=== PATIENT | male | born 1975 | race Caucasian/White ===

== ENCOUNTER → 2020-12-03 | Outpatient (CLI) | payer OTHER | END | disposition home or self-care (01) | LOC: STAR 11:27 | PROVIDERS: ATTEND Anesthesiology | DX: Z20.822 Contact with and (suspected) exposure to COVID-19 (principal) | CPT/HCPCS: U0003; U0005 ==

== ENCOUNTER 2020-12-09 05:34 | Observation (INO) | payer OTHER ==
[~2020-12-09] VITALS: Ht 177.8 cm; Wt 89.0 kg
[2020-12-09] MEDS ORDERED: CYCL10TA2 PO (06:06)
[2020-12-09] MEDS ORDERED: SILD50TA PO (06:06)
[2020-12-09 06:22] VITALS: BP 126/76
[2020-12-09] MEDS ORDERED: CHLORHEXIDINE 15 ML UDC PO ONE (06:30)
[2020-12-09] MEDS ORDERED: LACTATED RINGERS 1,000 ML IV SCH (06:30)
[2020-12-09] MEDS ORDERED: NONE PER PT (06:31)
[2020-12-09] MEDS ORDERED: FLUORESCEIN SODIUM 500 MG/5 ML ONE (07:00)
[2020-12-09] MEDS ORDERED: BUPIVACAINE/PF 0.25% ONE (07:00)
[2020-12-09] MEDS ORDERED: METHYLENE BLUE 50 MG/10 ML AMP ONE (07:00)
[2020-12-09] MEDS ORDERED: EPINEPHRINE 1 MG/ML, 1ML ONE (07:01)
[2020-12-09] MEDS ORDERED: MIDAZOLAM 1 MG/ML, 2ML ONE (07:09)
[2020-12-09] MEDS ORDERED: FENTANYL PF 250 MCG/5ML ONE (07:09)
[2020-12-09] MEDS ORDERED: HALOPERIDOL 5 MG/ML IV PRN (07:30)
[2020-12-09] MEDS ORDERED: PROMETHAZINE 25 MG/ML, 1ML IVPush PRN (07:30)
[2020-12-09] MEDS ORDERED: ACETAMINOPHEN 325 MG TABLET PO PRN (07:30)
[2020-12-09] MEDS ORDERED: HYDROmorphone 1 MG/ML, 1ML INJ IVPush PRN (07:30)
[2020-12-09] MEDS ORDERED: hydrALAzine 20 MG/ML, 1ML IV PRN (07:30)
[2020-12-09] MEDS ORDERED: FENTANYL PF 100 MCG/2ML IV PRN (07:30)
[2020-12-09] MEDS ORDERED: OXYcodone 5 MG/5 ML ORAL.SOL UDC PO PRN (07:30)
[2020-12-09] MEDS ORDERED: MEPERIDINE/PF 25MG/0.5ML IVPush PRN (07:30)
[2020-12-09] MEDS ORDERED: LABETALOL 5MG/ML, 20ML IV PRN (07:30)
[2020-12-09] MEDS ORDERED: DIPHENHYDRAMINE 50 MG/ML, 1ML IVPush PRN (07:30)
[2020-12-09] MEDS ORDERED: ONDANSETRON 2MG/ML, 2ML ONE (09:37)
[2020-12-09] MEDS ORDERED: PROPOFOL 10 MG/ML, 20ML ONE (09:37)
[2020-12-09] MEDS ORDERED: GLYCOPYRROLATE 0.2MG/1ML, 5ML ONE (09:37)
[2020-12-09] MEDS ORDERED: SUCCINYLCHOLINE 20 MG/ML, 10ML ONE (09:37)
[2020-12-09] MEDS ORDERED: ROCURONIUM 10MG/ML,5ML ONE (09:37)
[2020-12-09] MEDS ORDERED: CEFAZOLIN 1,000 MG ONE (09:37)
[2020-12-09] MEDS ORDERED: NEOSTIGMINE 1 MG/ML, 10ML ONE (09:37)
[2020-12-09] MEDS ORDERED: DEXAMETHASONE 4 MG/ML, 1ML ONE (09:37)
[2020-12-09] MEDS ORDERED: ACETAMINOPHEN 650 MG/20.3 ML UDC ONE (10:26)
[2020-12-09] MEDS ORDERED: OXYcodone 5 MG/5 ML ORAL.SOL UDC ONE (10:27)
[2020-12-09 11:50] VITALS: BP 122/71
[2020-12-09] MEDS ORDERED: OXYcodone IR 5MG TABLET PO PRN (12:30)
[2020-12-09] MEDS: ACETAMINOPHEN 500 MG TABLET PO SCH ×2 (14:00→16:53)
[2020-12-09 15:45] VITALS: BP 134/71
[2020-12-09] MEDS ORDERED: ONDANSETRON 2MG/ML, 2ML IVPush PRN (17:00)
[2020-12-09] MEDS ORDERED: ONDANSETRON ODT 4 MG PO PRN (17:00)
[2020-12-09] MEDS: D5%-0.45NACL+KCL 20MEQ 1,000 ML IV SCH (18:00)
[2020-12-09 18:52] VITALS: BP 115/68
[2020-12-10 00:27] VITALS: BP 132/74
[2020-12-10] MEDS: D5%-0.45NACL+KCL 20MEQ 1,000 ML IV SCH ×2 (02:49→10:00)
[2020-12-10 03:32] VITALS: BP 110/61
[2020-12-10] MEDS: ACETAMINOPHEN 500 MG TABLET PO SCH (05:07)
[2020-12-10 06:00] LABS: ANION GAP 10 mmol/L (5-15); CALCIUM 8.5 mg/dL (8.5-10.1); CHLORIDE 108 mmol/L (98-107)
[2020-12-10 06:01] LABS: CREATININE 0.99 mg/dL (0.7-1.3)
[2020-12-10 06:25] LABS: BASOPHILS % (AUTO) 0 % (0-1); EOSINOPHILS % (AUTO) 1 % (1-7); LYMPHOCYTES % (AUTO) 22 % (22-44); MEAN CORPUSCULAR HEMOGLOBIN 31.1 pg (27.5-34.5); MEAN CORPUSCULAR HGB CONC 34.4 g/dL (33.2-36.2); MEAN PLATELET VOLUME 9.4 fL (7.4-10.4); MONOCYTES % (AUTO) 10 % (2-9); NEUTROPHILS % (AUTO) 67 % (42-75); PLATELET COUNT 156 x10^3/uL (130-400); RED BLOOD COUNT 4.71 x10^6/uL (4.38-5.82); RED CELL DISTRIBUTION WIDTH 14.7 % (9.4-14.8)
[2020-12-10 07:06] VITALS: BP 107/64
[2020-12-10] MEDS ORDERED: HYDR-3237 PO ×3 (10:21→10:34)
[2020-12-10] MEDS ORDERED: ONDA4TAB13 PO (10:21)
== END 2020-12-10 12:28 | disposition home or self-care (01) ==
LOC: OUT 05:34 → 4NE 11:47 → OUT 18:39 → DCLOUNGE 12-10 12:24
PROVIDERS: ADMIT Urology; ATTEND Urology
DX: N13.1 Hydronephrosis with ureteral stricture, not elsewhere classified (principal); Z88.0 Allergy status to penicillin; Z79.899 Other long term (current) drug therapy
CPT/HCPCS: 36415; 50544; 80048; 85025; 88305; 96361; 96374; C1769; C2617; G0378; J0171; J0330; J0690; J1100; J2250; J2405; J2704; J2710; J3010; J3480; J7120; Q9968